=== PATIENT | female | born 1965 | race Caucasian/White ===

== ENCOUNTER → 2016-12-12 | Outpatient (CLI) | payer MEDICAID ==
[~2016-12-12] MED LIST: CLON1TAB PO; DOCU-143 PO; DULO60CA6 PO; FLUT9.9S NS; GABA800T PO; HYDR-3812 PO; LISI2.5T PO; MIRT15TA PO; OMEP40CA36 PO; POLY17PO6 PO; ROPI2TAB4 PO; TOPI200T25 PO; TRAM50TA2 PO
--- NOTE | 2016-12-12 10:13 | Diagnostic Imaging Report ---
PROCEDURE: MRI left joint lower extremity without contrast. TECHNIQUE: Multiplanar, multisequence non contrast-enhanced MRI of the left lower extremity was accomplished. INDICATION: Left knee pain. FINDINGS: There is a focal area of increased signal within the proximal ACL fibers seen on the sagittal images suggestive of a probably old focal partial tear or early mucinous degeneration. There is no high-grade ACL tear and no evidence of an acute component based on the lack of the expected associated bone marrow edema pattern with acute ACL injuries. The PCL is intact. The extensor mechanism is intact. There is a vertical tear involving the posterior horn of the medial meniscus and extending into the body of the meniscus. The anterior horn is intact. The lateral meniscus appears intact. The MCL and the lateral collateral ligament complex appear intact. No joint effusion and no Infante cyst is seen. The articular cartilage demonstrate no significant focal defects or significant thinning seen. There is increased signal seen within the medial head of the gastrocnemius muscle without associated fluid collection or focal mass seen. This involves a large portion of the muscle belly within the [id number] of this scan. The muscle bulk appears normal. The other muscles have normal signal. IMPRESSION: 1. There is diffuse edema within the visualized portions of the medial head of the gastrocnemius muscle seen which could relate to myositis or sprain. 2. Medial meniscus tear. 3. Focal increased signal within the proximal ACL fibers may relate to old partial tear or early mucinous degeneration. Dictated by: Dictated on workstation # [id number]
== END ==
LOC: RAD 07:35
PROVIDERS: ATTEND Nurse Practitioner
DX: S83.242A Other tear of medial meniscus, current injury, left knee, initial encounter (principal); R60.0 Localized edema; X58.XXXA Exposure to other specified factors, initial encounter; Y99.8 Other external cause status
CPT/HCPCS: 73721

== ENCOUNTER → 2017-01-24 | Outpatient (CLI) | payer MEDICAID ==
--- NOTE | 2017-01-25 19:45 | Diagnostic Imaging Report ---
EXAMINATION: Digital mammogram bilateral screening with tomosynthesis. INDICATION: Screening. COMPARISON: This study was compared to the prior exams of 01/05/2016, 04/27/2015, and 12/09/2013. At this time, there are no current complaints. The current study was also evaluated with a Computer Aided Detection (CAD) system. FINDINGS: There are scattered fibroglandular densities in both breasts which could obscure a lesion. When compared to the prior study, there has been no significant change. There is no primary or secondary sign of malignancy noted. The 3D tomographic views also fail to show any sign of malignancy. IMPRESSION: There is no evidence of malignancy. ACR BI-RADS Category 1: Negative. Result letter will be mailed to the patient. Note: At least 10% of breast cancer is not imaged by mammography. Dictated on workstation # [id number]
== END ==
LOC: RAD 09:26
PROVIDERS: ATTEND Nurse Practitioner Adult Health
DX: Z12.31 Encounter for screening mammogram for malignant neoplasm of breast (principal)
CPT/HCPCS: 77067

== ENCOUNTER → 2018-02-11 | Outpatient (CLI) | payer MEDICAID ==
[~2018-02-11] MED LIST changes: +ACHD5005 PO; +CEFU500T63 PO; -HYDR-3812 PO; +ONDA8TAB9 PO
--- NOTE | 2018-02-11 13:13 | Diagnostic Imaging Report ---
INDICATION: Routine screening. COMPARISON: 01/24/2017 and 01/05/2016. TECHNIQUE: 2D and 3D bilateral screening mammography was performed with CAD. FINDINGS: Scattered fibroglandular densities are identified bilaterally. The parenchymal pattern is stable. No discrete mass or malignant appearing microcalcifications are seen. The axillae are unremarkable. IMPRESSION: No mammographic features suspicious for malignancy are identified. ACR BI-RADS Category 1: Negative. Result letter will be mailed to the patient. Note: At least 10% of breast cancer is not imaged by mammography. Dictated by: Dictated on workstation # [id number]
== END ==
LOC: RAD 08:27
PROVIDERS: ATTEND Nurse Practitioner Family
DX: Z12.31 Encounter for screening mammogram for malignant neoplasm of breast (principal)
CPT/HCPCS: 77067

== ENCOUNTER 2018-08-06 13:49 | Outpatient (CLI) | payer MEDICAID ==
[~2018-08-06] VITALS: Ht 175.3 cm; Wt 82.6 kg
[~2018-08-06 13:49] MED LIST changes: +IPRA4AER IH; +MIRT7.5T8 PO; +PANT40TA3 PO; +PRAM0.252 PO; +RANI150T46 PO; +RT-ALBUINH IH; +TOPI100T11 PO; +VILA40TA PO
== END 2018-08-06 13:53 ==
LOC: PREOP 13:49
PROVIDERS: ATTEND Surgery
DX: Z01.818 Encounter for other preprocedural examination (principal)

== ENCOUNTER 2018-08-12 10:27 | Day surgery (SDC) | payer MEDICAID ==
[~2018-08-12] VITALS: Ht 175.3 cm; Wt 82.6 kg
[2018-08-12] MEDS ORDERED: LACTATED RINGERS 1,000 ML IV STA (10:39)
[2018-08-12] MEDS ORDERED: HURRICAINE EXT TUBE (BENZOCAINE) XX PRN (10:45)
[2018-08-12 10:56] VITALS: BP 150/106
[2018-08-12] MEDS ORDERED: LACTATED RINGERS 1,000 ML IV ONE (10:56)
[2018-08-12] MEDS ORDERED: LIDOCAINE PF 2% 5 ML (XYLOCAINE) VIAL ONE (11:27)
[2018-08-12] MEDS ORDERED: MIDAZOLAM 2 MG/2 ML (VERSED) VIAL ONE (11:39)
[2018-08-12] MEDS ORDERED: PROPOFOL INJECTION 50 ML IV ONE (11:39)
--- NOTE | 2018-08-12 11:48 | Progress Note-Pre Operative ---
Pre-Operative Progress Note H&P Reviewed The H&P was reviewed, patient examined and no changes noted. Date Seen by Provider: Aug 12, 2018 Time Seen by Provider: 11:47 Date H&P Reviewed: Aug 12, 2018 Time H&P Reviewed: 11:47 Pre-Operative Diagnosis: GERD dysphagia, epigastric abdominal pain SONNY ROMERO DO Aug 12, 2018 11:48
[2018-08-12] MEDS ORDERED: SUCR1TAB36 PO (12:02)
--- NOTE | 2018-08-12 12:02 | Discharge Inst-Simple/Standard ---
Discharge Inst-Standard Discharge Medications New, Converted or Re-Newed RX: Transmitted to Pharmacy Patient Instructions/Follow Up Plan of Care/Instructions/FU: 2 weeks Dania Activity as Tolerated: Yes Discharge Diet: Regular Diet SONNY ROMERO DO Aug 12, 2018 12:02
--- NOTE | 2018-08-12 12:04 | Progress Note-Post Operative ---
Post-Operative Progess Note Surgeon (s)/Film Producer (s) Surgeon SONNY ROMERO DO Film Producer: na Pre-Operative Diagnosis GERD dysphagia, epigastric abdominal pain Post-Operative Diagnosis gastritis Procedure & Operative Findings Date of Procedure 08/12/18 Procedure Performed/Findings egd c biopsies Anesthesia Type per automatic trimming sewer Estimated Blood Loss Estimated blood loss (mL): scant Specimens/Packing Specimens Removed antrum, body, ge SONNY ROMERO DO Aug 12, 2018 12:04
[2018-08-12 12:10] VITALS: BP 156/84
[2018-08-12 12:30] VITALS: BP 158/88
[2018-08-12 12:49] VITALS: BP 158/88
--- NOTE | 2018-08-12 14:27 | Anesthesia-General Post-Op ---
MAC Patient Condition Mental Status/LOC: Same as Preop Cardiovascular: Satisfactory Nausea/Vomiting: Absent Respiratory: Satisfactory Pain: Controlled Complications: Absent Post Op Complications Complications None Follow Up Care/Instructions Patient Instructions None needed. Anesthesiology Discharge Order Discharge Order Patient is doing well, no complaints, stable vital signs, no apparent adverse anesthesia problems. No complications reported per nursing. RINA JIM CRNA Aug 12, 2018 14:27
--- NOTE | 2018-08-12 14:48 | OPERATIVE REPORT ---
DATE OF SERVICE: 08/12/2018 PREOPERATIVE DIAGNOSES: Gastroesophageal reflux disease, dysphagia, epigastric abdominal pain. POSTOPERATIVE DIAGNOSIS: Gastritis. PROCEDURE: EGD with biopsies. SURGEON: Sonny Najera DO ANESTHESIA: Per INTEGRATION CONSULTANT. ESTIMATED BLOOD LOSS: Scant. COMPLICATIONS: None. INDICATIONS: The patient is a 53-year-old female, who has been having epigastric abdominal pain, gastroesophageal reflux disease and dysphagia. She understands risks and benefits of procedure and wished to proceed with procedure. Consent was signed on the chart. PROCEDURE IN DETAIL: The patient was taken to the endoscopy suite, placed in left lateral recumbent position. Timeout was performed. Scope was inserted into the mouth, down the esophagus and into the duodenum without difficulty. There were no polyps, masses or ulcerations within the duodenum. Scope was then slowly retracted back into the stomach, which had erythematous changes. Biopsy of the antrum and body were obtained. Scope was retroflexed noting no other pathology. Scope was then returned to its normal position, slowly withdrawn to the distal esophagus, which had normal appearance. No polyps, masses or ulcerations. Biopsy of the GE junction was obtained. Scope was then slowly retracted back until completely removed, noting no other pathology. RECOMMENDATIONS: The patient will follow up in the office in two weeks to discuss pathology results. We will add Carafate 1 gram four times a day to her regimen and see if she has any improvement. The patient also will have gallbladder workup before she could have multifactorial problems with her symptoms. Job ID: [id number] DocumentID: [id number] Dictated Date: 08/12/2018 12:06:11 Cognos Developer Date: 08/12/2018 14:48:10 Dictated By: SONNY NAJERA DO
== END 2018-08-12 12:51 | disposition home or self-care (01) ==
LOC: ENDO 10:27
PROVIDERS: ATTEND Surgery
DX: K29.70 Gastritis, unspecified, without bleeding (principal); K21.9 Gastro-esophageal reflux disease without esophagitis; I10 Essential (primary) hypertension; J44.9 Chronic obstructive pulmonary disease, unspecified; F17.210 Nicotine dependence, cigarettes, uncomplicated; B19.20 Unspecified viral hepatitis C without hepatic coma; Z79.899 Other long term (current) drug therapy

== ENCOUNTER → 2018-12-02 | Outpatient (CLI) | payer MEDICAID ==
[~2018-12-02] MED LIST changes: +CATHETER FLUSH 10 ML SYR IV PRN; +SUCR1TAB36 PO
--- NOTE | 2018-12-02 15:44 | Diagnostic Imaging Report ---
INDICATION: Epigastric pain. TECHNIQUE: Patient was administered 5.4 mCi technetium 99m Choletec intravenously and imaging over the abdomen was performed. After 60 minutes, patient ingested one can of Ensure and a gallbladder ejection fraction was calculated. FINDINGS: Homogeneous uptake of activity by the liver is seen. There is excretion of activity into the common duct and gallbladder. Normal passage of activity into the small bowel seen. Gallbladder ejection fraction is lower limits of normal at 34%. Normal values are 33% or greater. IMPRESSION: 1. Patent cystic duct and common bile duct. 2. Lower limits of normal gallbladder ejection fraction of 34%. Dictated by: Dictated on workstation # [id number]
== END ==
LOC: CARD 11:45
PROVIDERS: ATTEND Surgery
DX: R10.13 Epigastric pain (principal)
CPT/HCPCS: 78227

== ENCOUNTER 2018-12-24 05:56 | Outpatient (CLI) | payer MEDICAID ==
[~2018-12-24] VITALS: Ht 175.3 cm; Wt 82.6 kg
[~2018-12-24 05:56] MED LIST changes: -CATHETER FLUSH 10 ML SYR IV PRN
[2018-12-25] MEDS ORDERED: ACHD5005 PO (13:19)
[2018-12-25] MEDS ORDERED: DOCU-143 PO (13:19)
== END 2018-12-24 10:55 | disposition home or self-care (01) ==
LOC: PREOP 05:56
PROVIDERS: ATTEND Surgery
DX: Z01.818 Encounter for other preprocedural examination (principal)

== ENCOUNTER 2018-12-25 09:04 | Day surgery (SDC) | payer MEDICAID ==
[~2018-12-25] VITALS: Ht 175.3 cm; Wt 82.6 kg
[2018-12-25] VITALS (13 sets, daily range): BP systolic 113–158; BP diastolic 76–108
--- NOTE | 2018-12-25 09:23 | Progress Note-Pre Operative ---
Pre-Operative Progress Note H&P Reviewed The H&P was reviewed, patient examined and no changes noted. Date Seen by Provider: Dec 25, 2018 Time Seen by Provider: : Date H&P Reviewed: Dec 25, 2018 Time H&P Reviewed: :22 Pre-Operative Diagnosis: RUQ ABD PAIN, BILIARY DYSKINESIA SONNY ROMERO DO Dec 25, 2018 09:23
[2018-12-25] MEDS: LACTATED RINGERS 1,000 ML IV PRN ×3 (09:35→14:10)
[2018-12-25] MEDS ORDERED: ceFAZolin 2 GM/50 ML NS 50 ML ONE (09:36)
[2018-12-25] MEDS ORDERED: ceFAZolin 2 GM/50 ML NS 50 ML IV ONE (10:00)
[2018-12-25 10:05] LABS: BASOPHILS % (AUTO) 0 % (0-10); EOSINOPHILS # (AUTO) 0.1 10^3/uL (0.0-0.3); EOSINOPHILS % (AUTO) 2 % (0-10); HEMATOCRIT 37 % (35-52); HEMOGLOBIN 11.8 G/DL (11.5-16.0); LYMPHOCYTES % (AUTO) 35 % (12-44); MEAN CORPUSCULAR HEMOGLOBIN 29 PG (25-34); MEAN CORPUSCULAR HGB CONC 32 G/DL (32-36); MEAN CORPUSCULAR VOLUME 90 FL (80-99); MEAN PLATELET VOLUME 10.1 FL (7.4-10.4); MONOCYTES # (AUTO) 0.6 X 10^3 (0.0-1.0); MONOCYTES % (AUTO) 7 % (0-12); NEUTROPHILS # (AUTO) 4.9 X 10^3 (1.8-7.8); NEUTROPHILS % (AUTO) 56 % (42-75); PLATELET COUNT 260 10^3/uL (130-400); RED CELL DISTRIBUTION WIDTH 13.9 % (10.0-14.5); WHITE BLOOD COUNT 8.6 10^3/uL (4.3-11.0)
[2018-12-25] MEDS ORDERED: IOPAMIDOL 61% 30 ML (ISOVUE 300) VIAL IV ONE (10:32)
[2018-12-25] MEDS ORDERED: BUP/EPI 0.5% 1:200,000 (MARCAINE) 10ML VIAL IJ ONE (10:33)
[2018-12-25] MEDS ORDERED: ONDANSETRON 4 MG/2 ML (SDV) Z0FRAN ONE (10:36)
[2018-12-25] MEDS ORDERED: DEXAMETHASONE 10 MG/ML (DECADRON) 1 ML VIAL ONE (10:36)
[2018-12-25] MEDS ORDERED: MIDAZOLAM 2 MG/2 ML (VERSED) VIAL ONE (10:36)
[2018-12-25] MEDS ORDERED: fentaNYL INJECTION 100 MCG/2 ML AMP ONE ×2 (10:36→12:40)
[2018-12-25] MEDS ORDERED: LIDOCAINE PF 2% 5 ML (XYLOCAINE) VIAL ONE (10:36)
[2018-12-25] MEDS ORDERED: proPOfol 200 MG/20 ML (DIPRIVAN) VIAL IV ONE (10:36)
[2018-12-25] MEDS ORDERED: SEVOFLURANE (ULTANE) 15 ML INHAL SOLN ONE ×2 (12:58→13:20)
[2018-12-25] MEDS ORDERED: NEOSTIGMINE 3 MG/3 ML VIAL ONE (13:03)
[2018-12-25] MEDS ORDERED: GLYCOPYRROLATE 0.2 MG/ML (ROBINUL) 2 ML VIAL ONE ×2 (13:03→13:08)
--- NOTE | 2018-12-25 13:18 | Progress Note-Post Operative ---
Post-Operative Progess Note Surgeon (s)/Ichthyology Teacher (s) Surgeon SONNY ROMERO DO Ichthyology Teacher: Dr. Perez Pre-Operative Diagnosis RUQ ABD PAIN, BILIARY DYSKINESIA Post-Operative Diagnosis SAME Procedure & Operative Findings Date of Procedure 12/25/18 Procedure Performed/Findings lap román c ioc Anesthesia Type gen Estimated Blood Loss Estimated blood loss (mL): min Specimens/Packing Specimens Removed gallbladder SONNY ROMERO DO Dec 25, 2018 13:18
[2018-12-25] MEDS ORDERED: DOCU-143 PO (13:19)
[2018-12-25] MEDS ORDERED: ACHD5005 PO (13:19)
[2018-12-25] MEDS ORDERED: ROCURONIUM 10 MG/ML 5 ML SYRINGE IV ONE (13:20)
--- NOTE | 2018-12-25 13:28 | Discharge Inst-Simple/Standard ---
Discharge Inst-Standard Discharge Medications New, Converted or Re-Newed RX: RX on Chart Patient Instructions/Follow Up Plan of Care/Instructions/FU: 2-3 weeks Dania Activity as Tolerated: No Discharge Diet: Regular Diet Other Inst to Patient Follow up Appt: Make appointment for 2-3 weeks. You need to have MRCP (radiology) performed. Bharti in my office is arranging it. Call [phone] and discuss with Bharti Instructions: No lifting greater than 10 pounds. No strenuous activity. May shower in 24 hours, no tub bath or soaking. Use incentive spirometer at home as directed. No Smoking Skin/Wound Care: You have special glue over incisions it will fall off on its own. Symptoms to Report: Appetite Changes, Extremity Discoloration, Numbness/Tingling, Swelling Increased, Bleeding Excessive, Eyesight Changes, Pain Increased, Urine Color Change, Constipation(Persistent), Fever over 101 degree F, Pain/Pressure in chest, Urinating Difficulty, Cough Up/Vomit Blood, Heart Beat Irreg/Pounding, Pain/Pressure in jaw, Vaginal Bleeding Increase, Cramps in feet or legs, Lightheadedness, Pain/Pressure in shoulder, Diarrhea(Persistent), Memory Changes Suddenly, Questions/Concerns, Weight gain consecutive days, Dizziness/Fainting, Nausea/Vomiting, Shortness of Breath, Weight gain over 2 pounds. If eyes or skin turn yellow notify physician. If questions or concerns contact your physician Or seek help at emergency department. SONNY ROMERO DO Dec 25, 2018 13:27
--- NOTE | 2018-12-25 13:30 | Diagnostic Imaging Report ---
INDICATION: Fluoroscopy for intraoperative cholangiogram. FINDINGS: Fluoroscopy was provided in the OR during intraoperative cholangiogram. 10 seconds of fluoroscopy was utilized. Images demonstrate contrast being injected via the cystic duct remnant. Contrast is seen within intrahepatic and extrahepatic bile ducts. No filling defects are seen. Contrast does extend into the duodenum. There is a focal area of narrowing of the distal common bile duct. Common duct stricture or mass cannot be entirely excluded. IMPRESSION: 1. Focal area of significant luminal narrowing involving the distal common bile duct just proximal to the ampulla. Bile duct stricture or mass cannot be entirely excluded. MRCP would be useful for further evaluation. Dictated by: Dictated on workstation # [id number]
[2018-12-25] MEDS ORDERED: LABETALOL HCL 20 MG/4 ML VIAL ONE ×2 (13:34→13:49)
[2018-12-25] MEDS ORDERED: MEPERIDINE (DEMEROL) INJ 50 MG/ML IVP ONE (13:45)
[2018-12-25] MEDS ORDERED: LABETALOL HCL 100 MG/20 ML VIAL IV PRN (13:45)
[2018-12-25] MEDS ORDERED: PROMETHAZINE INJ 25 MG/ML (PHENERGAN) AMP IVP ONE (13:45)
[2018-12-25] MEDS ORDERED: ONDANSETRON 4 MG/2 ML (SDV) Z0FRAN IVP PRN (13:45)
[2018-12-25] MEDS ORDERED: HYDROmorphone 2 MG/ML VIAL (DILAUDID) IV ONE (13:45)
[2018-12-25] MEDS ORDERED: morphine INJ 10 MG/ML 1ML (SYR OR VIAL) IVP ONE (13:45)
--- NOTE | 2018-12-25 14:19 | Anesthesia-General Post-Op ---
General Patient Condition Mental Status/LOC: Same as Preop Cardiovascular: Satisfactory Nausea/Vomiting: Absent Respiratory: Satisfactory Pain: Controlled Complications: Absent Post Op Complications Complications None Follow Up Care/Instructions Patient Instructions None needed. Anesthesia/Patient Condition Patient Condition Patient is doing well, no complaints, stable vital signs, no apparent adverse anesthesia problems. No complications reported per nursing. KELI HYDE CRNA Dec 25, 2018 14:18
[2018-12-25] MEDS ORDERED: HYDROcodone/APAP 5 MG/325 MG (LORTAB) TAB PO PRN (14:45)
--- NOTE | 2018-12-26 03:51 | OPERATIVE REPORT ---
DATE OF SERVICE: 12/25/2018 PREOPERATIVE DIAGNOSIS: Biliary dyskinesia and right upper quadrant abdominal pain. POSTOPERATIVE DIAGNOSIS: Biliary dyskinesia and right upper quadrant abdominal pain. PROCEDURE: Laparoscopic cholecystectomy with intraoperative cholangiogram. SURGEON: Sonny Najera DO PUBLIC TRANSIT TROLLEY DRIVER: Dr. Perez, assisted in retraction, dissection and closure. ANESTHESIA: General. ESTIMATED BLOOD LOSS: Minimal. COMPLICATIONS: None. INDICATIONS: The patient is a 53-year-old female who has been having right upper quadrant abdominal pain and had gallbladder workup, which was consistent with biliary dyskinesia. She understands risks and benefits of procedure and wished to proceed with procedure. Consent was signed in the chart. DESCRIPTION OF PROCEDURE: The patient was taken to the operating suite. She was prepped and draped in sterile fashion. Timeout was performed. Midline incision was made just above the umbilicus. Cautery was used to dissect down the fascia, which was scored and grasped and elevated. A small edge of the mesh was still present at this area, which was able to be dissected through. The abdomen was then entered and a balloon trocar was then inserted into the abdomen. Under direct visualization of the laparoscope, a 5 mm trocar was placed in the subxiphoid region and two 5 mm trocars were placed in the right upper quadrant. Gallbladder was grasped, elevated. The left lobe of the liver was floppy and present over neck of the gallbladder, which had to be slightly retracted to be moved all the way for better visualization. The cystic duct and cystic artery were dissected out. There were multiple adhesions to this area. Once dissected out, clips were placed on the proximal and distal portion of the cystic artery and clip was placed on distal portion of the cystic duct. The duct was then partially transected. Arrow catheter was inserted and cholangiogram was performed. There were no filling defects. Contrast made its way into the duodenum; however, there was narrowing distally in the common bile duct. Not completely obstructed. The Arrow catheter was then removed and clips were placed on the proximal portion of the cystic duct and the duct and the artery were then completely transected. Hook cautery was used to dissect the gallbladder from the gallbladder fossa achieving hemostasis. Once removed, it was removed through the 12 mm trocar site. The abdomen was then irrigated with copious amounts of irrigation and suction. The abdomen was then desufflated and the trocars were removed. The mesh and the fascia was then grasped and elevated and the defect was then closed with Prolene suture. The wounds were then irrigated. Skin was then closed using 4-0 Monocryl in subcuticular fashion. The abdomen was washed and dried. Skin Affix was placed over the incisions. The patient tolerated the procedure well without any complications. She was taken to recovery room in stable condition. Job ID: [id number] DocumentID: [id number] Dictated Date: 12/25/2018 17:18:48 Gasket Notcher Date: 12/26/2018 03:50:39 Dictated By: SONNY NAJERA DO
== END 2018-12-25 15:40 | disposition home or self-care (01) ==
LOC: SDC 09:04
PROVIDERS: ATTEND Surgery
DX: K81.1 Chronic cholecystitis (principal); K82.8 Other specified diseases of gallbladder; I10 Essential (primary) hypertension; N19 Unspecified kidney failure; F17.210 Nicotine dependence, cigarettes, uncomplicated; J44.9 Chronic obstructive pulmonary disease, unspecified; G40.909 Epilepsy, unspecified, not intractable, without status epilepticus; F41.9 Anxiety disorder, unspecified; F31.9 Bipolar disorder, unspecified; K21.9 Gastro-esophageal reflux disease without esophagitis; F42.9 Obsessive-compulsive disorder, unspecified; Z86.19 Personal history of other infectious and parasitic diseases; Z79.899 Other long term (current) drug therapy; Z11.2 Encounter for screening for other bacterial diseases; Z80.0 Family history of malignant neoplasm of digestive organs
CPT/HCPCS: 36415; 85025; 87081; 88304

== ENCOUNTER 2018-12-29 16:34 | Emergency (ER) | payer MEDICAID ==
[~2018-12-29] VITALS: Ht 175.3 cm; Wt 82.6 kg
[2018-12-29] MEDS ORDERED: IBUPROFEN 800 MG (MOTRIN) TAB PO ONE (17:15)
[2018-12-29] MEDS ORDERED: ACETAMINOPHEN 500 MG TAB (TYLENOL) PO ONE (17:15)
--- NOTE | 2018-12-29 17:16 | ED General ---
General Chief Complaint: Abdominal/GI Problems Stated Complaint: ABD PAIN,FEVER,CHILLS Nursing Triage Note: PT STATES HAVING GB OUT ON SATURDAY AND TODAY HAS HAD INCREASED ABD PAIN AND CHILLS. PT UNSURE IF SHE HAD FEVER. PT DENIES N/V/D. PT DENIES TAKING ANY TYLENOL OR IBUPROFEN. INCISION SITES ARE FREE FROM SIGNS OF INFECTION. Nursing Sepsis Screen: No Definite Risk Source of Information: Patient Exam Limitations: No Limitations History of Present Illness Date Seen by Provider: Dec 29, 2018 Time Seen by Provider: 17:14 Initial Comments To ER per private vehicle from home with reports of chills. She had laparoscopic cholecystectomy for biliary dyskinesia on , 12/25/18 here. She states that her pain is fairly well controlled. She is not sure if she is had any diarrhea or if she's had any troubles urinating, also not sure if she had any cough but she states "maybe". She hasn't checked her temperature. She hasn't taken Tylenol or Motrin. Timing/Duration: 4-6 Hours Severity: Moderate Associated Systoms: Fever/Chills Allergies and Home Medications Allergies Coded Allergies: codeine (Verified Allergy, Intermediate, N/V, 05/21/16) Home Medications Albuterol Sulfate 1 Puff Puff, 2 PUFF IH Q4H PRN for SHORTNESS OF BREATH, (Reported) Albuterol/Ipratropium 4 Gm Aero, 2 PUFF IH TID, (Reported) Cefuroxime Axetil 500 Mg Tablet, 500 MG PO BID Prescribed by: MONSTER ASHRAF on 12/29/181947 Docusate Sodium 100 Mg Capsule, 100 MG PO DAILY Prescribed by: SONNY ROMERO on 12/25/18 1319 Gabapentin 800 Mg Tablet, 800 MG PO TID, (Reported) Hydrocodone Bit/Acetaminophen 1 Tab Tab, 1-2 TAB PO Q6H PRN for PAIN-MODERATE Prescribed by: SONNY ROMERO on 12/25/18 1319 Mirtazapine 7.5 Mg Tablet, 7.5 MG PO HS, (Reported) Pantoprazole Sodium 40 Mg Tablet.dr, 40 MG PO BID, (Reported) Pramipexole Di-HCl 0.25 Mg Tablet, 0.25 MG PO HS, (Reported) Vilazodone Hydrochloride 40 Mg Tablet, 40 MG PO DAILY, (Reported) Patient Home Medication List Home Medication List Reviewed: Yes Review of Systems Review of Systems Constitutional: see HPI, chills; No fever EENTM: see HPI Respiratory: see HPI, cough (maybe) Cardiovascular: no symptoms reported Gastrointestinal: abdominal pain Genitourinary: see HPI Musculoskeletal: no symptoms reported Skin: no symptoms reported Psychiatric/Neurological: No Symptoms Reported Past Yxlclet-Lrjtzb-Udzgha Hx Patient Social History Alcohol Use: Occasionally Uses Recreational Drug Use: Yes Drug of Choice: OCCASSIONAL MARIJUANA USE Smoking Status: Current Everyday Smoker Type Used: Cigarettes 2nd Hand Smoke Exposure: Yes Recent Foreign Travel: No Contact w/Someone Who Travel: No Recent Infectious Disease Expo: No Recent Hopitalizations: No Physical Abuse: No Sexual Abuse: No Mistreated: No Fear: No Immunizations Up To Date Tetanus Booster (TDap): Unknown Date of Influenza Vaccine: Mar 19, 2018 Seasonal Allergies Seasonal Allergies: Yes Past Medical History Surgeries: Yes (UMBILICAL HERNIA AT , UMBILICAL HERNIA REPAIR x2, shoulder sx, knee sx) Tubal Ligation Respiratory: Yes COPD Cardiac: No Hypertension Neurological: No Reproductive Disorders: No Sexually Transmitted Disease: No HIV/AIDS: No Genitourinary: Yes (kidney issues) Bladder Infection Gastrointestinal: Yes (HEP C) Gastroesophageal Reflux, Chronic Constipation, Chronic Diarrhea, Hepatitis, Polyps, Gall Bladder Disease Musculoskeletal: Yes (BULGING DISCS) Arthritis, Chronic Back Pain Endocrine: No HEENT: No Loss of Vision: Bilateral Hearing Impairment: Denies Cancer: No Psychosocial: Yes (SEVERE ANXIETY, OCD) Anxiety, Bipolar Integumentary: No Blood Disorders: No Adverse Reaction/Blood Tranf: No Physical Exam Vital Signs Vital Signs - First Documented 12/29/18 16:42 Temp 98.6 Pulse 82 Resp 18 B/P (MAP) 155/126 (136) O2 Delivery Room Air Capillary Refill : Less Than 3 Seconds Height, Weight, BMI Height: 5'9.00" Weight: 182lbs. 0.0oz. 82.724291ur; 26.9 BMI Method:Stated General Appearance: No Apparent Distress, WD/WN, Other (shivering, she is afebrile at 99 checked a couple of different times.) Eyes: Bilateral Eye Normal Inspection, Bilateral Eye PERRL, Bilateral Eye EOMI HEENT: PERRL/EOMI, TMs Normal Neck: Full Range of Motion, Normal Inspection Respiratory: Normal Breath Sounds, No Accessory Muscle Use, No Respiratory Distress Cardiovascular: Regular Rate, Rhythm, Normal Peripheral Pulses Gastrointestinal: Non Tender, Soft Extremity: Normal Capillary Refill, Normal Inspection Neurologic/Psychiatric: Alert, Oriented x3 Skin: Normal Color, Warm/Dry Focused Exam Lactate Level 12/29/18 18:20: Lactic Acid Level 1.46 Lactic Acid Level Laboratory Tests Test 12/29/18 18:20 Lactic Acid Level 1.46 MMOL/L (0.50-2.00) Progress/Results/Core Measures Suspected Sepsis Recent Fever Within 48 Hours: Yes Infection Criteria Present: None New/Unexplained Altered Menta: No Sepsis Screen: No Definite Risk SIRS Temperature:98.6 Pulse: 82 Respiratory Rate: 18 Laboratory Tests 12/29/18 18:20: White Blood Count 8.1 Blood Pressure 155 /126 Mean: 136 12/29/18 18:20: Lactic Acid Level 1.46 Laboratory Tests 12/29/18 18:20: Creatinine 0.86, Platelet Count 302, Total Bilirubin 0.5 Results/Orders Lab Results Laboratory Tests Test 12/29/18 18:20 12/29/18 19:20 Range/Units White Blood Count 8.1 4.3-11.0 10^3/uL Red Blood Count 4.00 L 4.35-5.85 10^6/uL Hemoglobin 11.6 11.5-16.0 G/DL Hematocrit 35 35-52 % Mean Corpuscular Volume 88 80-99 FL Mean Corpuscular Hemoglobin 29 25-34 PG Mean Corpuscular Hemoglobin Concent 33 32-36 G/DL Red Cell Distribution Width 13.7 10.0-14.5 % Platelet Count 302 130-400 10^3/uL Mean Platelet Volume 9.8 7.4-10.4 FL Neutrophils (%) (Auto) 63 42-75 % Lymphocytes (%) (Auto) 27 12-44 % Monocytes (%) (Auto) 8 0-12 % Eosinophils (%) (Auto) 1 0-10 % Basophils (%) (Auto) 0 0-10 % Neutrophils # (Auto) 5.1 1.8-7.8 X 10^3 Lymphocytes # (Auto) 2.2 1.0-4.0 X 10^3 Monocytes # (Auto) 0.7 0.0-1.0 X 10^3 Eosinophils # (Auto) 0.1 0.0-0.3 10^3/uL Basophils # (Auto) 0.0 0.0-0.1 10^3/uL Sodium Level 139 135-145 MMOL/L Potassium Level 3.6 3.6-5.0 MMOL/L Chloride Level 108 H 98-107 MMOL/L Carbon Dioxide Level 19 L 21-32 MMOL/L Anion Gap 12 5-14 MMOL/L Blood Urea Nitrogen 19 H 7-18 MG/DL Creatinine 0.86 0.60-1.30 MG/DL Estimat Glomerular Filtration Rate > 60 BUN/Creatinine Ratio 22 Glucose Level 98 70-105 MG/DL Lactic Acid Level 1.46 0.50-2.00 MMOL/L Calcium Level 9.3 8.5-10.1 MG/DL Corrected Calcium 9.4 8.5-10.1 MG/DL Total Bilirubin 0.5 0.1-1.0 MG/DL Aspartate Amino Transf (AST/SGOT) 32 5-34 U/L Alanine Aminotransferase (ALT/SGPT) 58 H 0-55 U/L Alkaline Phosphatase 93 40-136 U/L Total Protein 6.5 6.4-8.2 GM/DL Albumin 3.9 3.2-4.5 GM/DL Lipase 17 8-78 U/L Urine Color YELLOW Urine Clarity SLIGHTLY CLOUDY Urine pH 8 5-9 Urine Specific [place] 1.015 L 1.016-1.022 Urine Protein 2+ H NEGATIVE Urine Glucose (UA) NEGATIVE NEGATIVE Urine Ketones 3+ H NEGATIVE Urine Nitrite POSITIVE H NEGATIVE Urine Bilirubin NEGATIVE NEGATIVE Urine Urobilinogen NORMAL NORMAL MG/DL Urine Leukocyte Esterase 3+ H NEGATIVE Urine RBC (Auto) 3+ H NEGATIVE Urine RBC NONE /HPF Urine WBC 10-25 H /HPF Urine Squamous Epithelial Cells 5-10 /HPF Urine Crystals NONE /LPF Urine Bacteria LARGE H /HPF Urine Casts NONE /LPF Urine Mucus SMALL H /LPF Urine Culture Indicated YES My Orders Orders - MONSTER ASHRAF APRN Cbc With Automated Diff (12/29/18 16:55) Comprehensive Metabolic Panel (12/29/18 16:55) Lipase (12/29/18 16:55) Ua Culture If Indicated (12/29/18 16:55) Chest Pa/Lat (2 View) (12/29/18 16:55) Ed Iv/Invasive Line Start (12/29/18 16:55) Blood Culture (12/29/18 16:55) Lactic Acid Analyzer (12/29/18 16:55) Acetaminophen Tablet (Tylenol Tablet) (12/29/18 17:15) Ibuprofen Tablet (Motrin Tablet) (12/29/18 17:15) Lactated Ringers (Lr 1000 Ml Iv Solution (12/29/18 17:30) Urine Culture (12/29/18 19:20) Cefdinir Capsule (Omnicef Capsule) (12/29/18 20:00) Medications Given in ED Current Medications Medications Dose Ordered Sig/Ted Route Start Time Stop Time Status Last Admin Dose Admin Acetaminophen 1,000 mg ONCE ONCE PO 12/29/18 17:15 12/29/18 17:16 DC 12/29/18 17:19 1,000 MG Ibuprofen 800 mg ONCE ONCE PO 12/29/18 17:15 12/29/18 17:16 DC 12/29/18 17:19 800 MG Vital Signs/I&O 12/29/18 12/29/18 16:42 19:00 Temp 98.6 98.6 Pulse 82 Resp 18 18 B/P (MAP) 155/126 (136) O2 Delivery Room Air Capillary Refill : Less Than 3 Seconds Blood Pressure Mean: 136 Departure Impression Primary Impression: Urinary tract infection Qualified Codes: N30.00 - Acute cystitis without hematuria Disposition: 01 HOME, SELF-CARE Condition: Stable Departure-Patient Inst. Decision time for Depature: 19:47 Referrals: [facility] [place] (PCP) Primary Care Physician ALEKSANDR ARNOLD APRN (Family) Primary Care Physician Patient Instructions: Urinary Tract Infection, Adult (DC) Add. Discharge Instructions: 1. Tylenol and ibuprofen for any fevers or chills. Take the antibiotic as directed starting tomorrow. Follow-up with your doctor later this week for recheck. All discharge instructions reviewed with patient and/or family. Voiced understanding. Scripts Cefuroxime Axetil (Cefuroxime) 500 Mg Tablet 500 MG PO BID, #10 TAB Prov: MONSTER ASHRAF APRN 12/29/18 MONSTER ASHRAF APRN Dec 29, 2018 17:16
[2018-12-29] MEDS ORDERED: LACTATED RINGERS 1,000 ML IV SCH (17:30)
--- NOTE | 2018-12-29 17:31 | NUR ---
LAB HERE TO DRAW BLOOD AND 2ND BLOOD CULTURE.
--- NOTE | 2018-12-29 18:23 | NUR ---
LAB UNABLE TO OBTAIN BLOOD IV STARTED #20 L EJ STARTED BY Wil ASHRAF APRN TO OBTAIN BLOOD.
[2018-12-29 18:29] LABS: BASOPHILS % (AUTO) 0 % (0-10); EOSINOPHILS # (AUTO) 0.1 10^3/uL (0.0-0.3); EOSINOPHILS % (AUTO) 1 % (0-10); HEMATOCRIT 35 % (35-52); HEMOGLOBIN 11.6 G/DL (11.5-16.0); LYMPHOCYTES # (AUTO) 2.2 X 10^3 (1.0-4.0); LYMPHOCYTES % (AUTO) 27 % (12-44); MEAN CORPUSCULAR HEMOGLOBIN 29 PG (25-34); MEAN CORPUSCULAR HGB CONC 33 G/DL (32-36); MEAN CORPUSCULAR VOLUME 88 FL (80-99); MEAN PLATELET VOLUME 9.8 FL (7.4-10.4); MONOCYTES # (AUTO) 0.7 X 10^3 (0.0-1.0); MONOCYTES % (AUTO) 8 % (0-12); NEUTROPHILS # (AUTO) 5.1 X 10^3 (1.8-7.8); NEUTROPHILS % (AUTO) 63 % (42-75); PLATELET COUNT 302 10^3/uL (130-400); RED CELL DISTRIBUTION WIDTH 13.7 % (10.0-14.5); WHITE BLOOD COUNT 8.1 10^3/uL (4.3-11.0)
--- NOTE | 2018-12-29 18:36 | NUR ---
AMB TO BATHROOM COLLECTION HAT PLACED IN STOOL PATIENT HAD BM IN URINE SPECIMEN UNABLE TO USE.
[2018-12-29 18:50] LABS: ALANINE AMINOTRANSFERASE 58 U/L (0-55); ALBUMIN 3.9 GM/DL (3.2-4.5); ALKALINE PHOSPHATASE 93 U/L (40-136); BILIRUBIN,TOTAL 0.5 MG/DL (0.1-1.0); BUN/CREATININE RATIO 22; CALCIUM 9.3 MG/DL (8.5-10.1); CARBON DIOXIDE 19 MMOL/L (21-32); CHLORIDE 108 MMOL/L (98-107); CREATININE SERUM 0.86 MG/DL (0.60-1.30); GFR ESTIMATED > 60; GLUCOSE 98 MG/DL (70-105); LIPASE 17 U/L (8-78); POTASSIUM 3.6 MMOL/L (3.6-5.0); SODIUM 139 MMOL/L (135-145); TOTAL PROTEIN 6.5 GM/DL (6.4-8.2)
--- NOTE | 2018-12-29 19:14 | Diagnostic Imaging Report ---
INDICATION: Preop evaluation for cholecystectomy on . Patient has increased abdominal pain and chills, possible fever. FINDINGS: Frontal and lateral views of the chest demonstrate the lungs to be clear. The heart, mediastinum, and pulmonary vascularity and the visualized bony thorax are normal. IMPRESSION: Normal chest. Dictated by: Dictated on workstation # [id number]
[2018-12-29 19:31] LABS: BILIRUBIN,URINE NEGATIVE (NEGATIVE); CLARITY,URINE SLIGHTLY CLOUDY; COLOR,URINE YELLOW; GLUCOSE, URINE (UA) NEGATIVE (NEGATIVE); KETONES,URINE 3+ (NEGATIVE); LEUKOCYTE ESTERASE ,URINE 3+ (NEGATIVE); NITRITE,URINE POSITIVE (NEGATIVE); PH,URINE 8 (5-9); PROTEIN,URINE 2+ (NEGATIVE); UROBILINOGEN,URINE NORMAL (NORMAL)
[2018-12-29 19:44] LABS: BACTERIA,URINE LARGE /HPF
[2018-12-29] MEDS ORDERED: CEFU500T63 PO (19:48)
[2018-12-29 20:00] VITALS: BP 155/111
[2018-12-29] MEDS ORDERED: CEFDINIR 300 MG (OMNICEF) CAP PO ONE (20:00)
== END 2018-12-29 19:59 | disposition home or self-care (01) ==
LOC: EDUNIT# 16:34 → ER 16:35
DX: N39.0 Urinary tract infection, site not specified (principal); J44.9 Chronic obstructive pulmonary disease, unspecified; I10 Essential (primary) hypertension; K21.9 Gastro-esophageal reflux disease without esophagitis; F41.9 Anxiety disorder, unspecified; F31.9 Bipolar disorder, unspecified; B19.20 Unspecified viral hepatitis C without hepatic coma; F42.9 Obsessive-compulsive disorder, unspecified; F17.210 Nicotine dependence, cigarettes, uncomplicated; Z87.19 Personal history of other diseases of the digestive system; Z86.010 Personal history of colon polyps; Z98.51 Tubal ligation status; Z88.5 Allergy status to narcotic agent; Z90.49 Acquired absence of other specified parts of digestive tract; Z98.890 Other specified postprocedural states
CPT/HCPCS: 36415; 51701; 71046; 80053; 81000; 83605; 83690; 85025; 87040; 87077; 87088; 87186; 96360; 96361

== ENCOUNTER → 2019-01-02 | Outpatient (CLI) | payer MEDICAID ==
[~2019-01-02] MED LIST changes: +GADOBUTROL 7.5 MMOL/7.5 ML (GADAVIST) VIAL IV ONE
--- NOTE | 2019-01-02 17:04 | Diagnostic Imaging Report ---
PROCEDURE: MR imaging cholangiography-pancreatography. TECHNIQUE: Multiplanar imaging of the abdomen was performed on a 1.5 Latoya magnet without contrast. 3D rotating reconstructions were made for the MRCP. INDICATION: Post recent cholecystectomy with continued pain. Pain has recently improved. CORRELATION STUDY: None. FINDINGS: Post cholecystectomy changes with nonvisualization of the gallbladder. The limited visualized central intrahepatic biliary tree and extrahepatic biliary tree are normal in caliber. There is light loss of smooth contour, otherwise unremarkable. There is no suggestion for an abnormal intraluminal filling defect to suggest choledocholithiasis. The visualized central main pancreatic duct is of normal caliber. No significant gallbladder fossa fluid collection. Liver has slight heterogeneous signal intensity without definitive focal lesion. Liver is normal in size. Spleen, pancreas, and adrenal glands have normal configuration. Kidneys are incompletely imaged. The visualized superior poles are unremarkable. The limited visualized proximal abdominal aorta is also normal in caliber. No upper abdominal ascites. Heart size is normal. IMPRESSION: 1. Post cholecystectomy changes. Biliary tree appears to be of normal caliber without findings to suggest choledocholithiasis. Dictated by: Dictated on workstation # [id number]
== END ==
LOC: RAD 09:18
PROVIDERS: ATTEND Surgery
DX: G89.18 Other acute postprocedural pain (principal); K83.1 Obstruction of bile duct; Z90.49 Acquired absence of other specified parts of digestive tract
CPT/HCPCS: 74181

== ENCOUNTER → 2019-01-06 | Outpatient (CLI) | payer MEDICAID ==
[~2019-01-06] MED LIST changes: +GADOBUTROL 10 MMOL/10 ML (GADAVIST) VIAL IV ONE; -GADOBUTROL 7.5 MMOL/7.5 ML (GADAVIST) VIAL IV ONE
[2019-01-06 07:09] LABS: BUN/CREATININE RATIO 20; CREATININE SERUM 0.91 MG/DL (0.60-1.30); GFR ESTIMATED > 60
--- NOTE | 2019-01-06 08:54 | Diagnostic Imaging Report ---
PROCEDURE: MR imaging of the brain without contrast. TECHNIQUE: Multiplanar, multisequence MR imaging of the brain was performed without contrast. INDICATION: Chronic memory problems. Comparison: CT head on 01/30/2018. Findings: No acute ischemia, mass, or hemorrhage. Scattered focal areas of chronic microvascular disease are seen in the periventricular and subcortical white matter. The ventricles, cortical sulci, and basilar cisterns are symmetric and unremarkable. The sellar and suprasellar regions have a normal appearance. The brainstem and posterior fossa are unremarkable. The paranasal sinuses and mastoid air cells demonstrate normal signal characteristics. The globes and orbits are symmetric and unremarkable. The scalp and calvarium have a normal appearance. Impression: 1. No acute ischemia, mass, or hemorrhage. 2. Scattered chronic microvascular disease in the periventricular and subcortical white matter. Dictated by: Dictated on workstation # [id number]
== END ==
LOC: RAD 06:43
PROVIDERS: ATTEND Psychiatry & Neurology Neurology
DX: R51 Headache (principal); R90.82 White matter disease, unspecified; R41.3 Other amnesia; R56.9 Unspecified convulsions
CPT/HCPCS: 36415; 70551; 82565; 84520